=== PATIENT | male | born 1990 | race Caucasian/White ===

== ENCOUNTER 2019-01-06 08:08 | Emergency (ER) | payer MEDICAID ==
[~2019-01-06] VITALS: Ht 185.4 cm; Wt 91.0 kg
[2019-01-06] MEDS ORDERED: TETANUS, DIPHTHERIA, PERTUSSIS VAC/PF 0.5ML (>7YR OLD) IM ONE (11:45)
[2019-01-06] MEDS ORDERED: AMOXICILLIN/POTASSIUM CLAVULANATE 875/125MG TAB PO ONE (11:45)
[2019-01-06] MEDS ORDERED: MORPHINE SULFATE 10 MG/ML CPJ IM ONE (11:45)
[2019-01-06 13:21] VITALS: BP 138/98
== END 2019-01-06 13:56 | disposition home or self-care (01) ==
LOC: ER 08:08
DX: S61.451A Open bite of right hand, initial encounter (principal); W54.0XXA Bitten by dog, initial encounter; Y93.89 Activity, other specified; Y92.89 Other specified places as the place of occurrence of the external cause; Y99.8 Other external cause status; Z98.890 Other specified postprocedural states
CPT/HCPCS: 73090; 73120; 90471; 90715; 96372; 99283; A4217; J2270; Z7610